=== PATIENT | female | born 1980 | race Two or more races ===

== ENCOUNTER 2020-01-30 10:15 | Inpatient (IN) | payer OTHER ==
[~2020-01-30] VITALS: Ht 152.4 cm; Wt 81.6 kg
[2020-01-30] MEDS ORDERED: LIPITOR20 MG PO (12:32)
[2020-01-30] MEDS ORDERED: SYMBICORT 16010.2 GM IH (12:32)
== END 2020-02-08 09:22 | disposition home or self-care (01) | DRG 743 ==
LOC: OB/GYN 02-05 07:00 → O/R 02-05 09:26 → OB/GYN 02-05 10:15
PROVIDERS: ADMIT Obstetrics & Gynecology; ATTEND Obstetrics & Gynecology
PROC: 0UT90ZZ Resection of Uterus, Open Approach (ICD-10-PCS; principal; 2020-02-07)
PROC: 0UB50ZX Excision of Right Fallopian Tube, Open Approach, Diagnostic (ICD-10-PCS; 2020-02-07)
PROC: 3E0F7GC Introduction of Other Therapeutic Substance into Respiratory Tract, Via Natural or Artificial Opening (ICD-10-PCS; 2020-02-07)
DX: N80.0 Endometriosis of uterus (principal); N72 Inflammatory disease of cervix uteri; N83.8 Other noninflammatory disorders of ovary, fallopian tube and broad ligament; R30.0 Dysuria; J45.909 Unspecified asthma, uncomplicated